=== PATIENT | male | born 1955 | race Caucasian/White ===

== ENCOUNTER 2017-11-04 14:49 | Emergency (ER) | payer MEDICARE ==
[2017-11-04] MEDS ORDERED: Ketorolac Tromethamine 30 MG/ML VIAL ONE (15:31)
[2017-11-04] MEDS ORDERED: Ondansetron HCl/PF 4 MG/2 ML Vial ONE (15:39)
[2017-11-04 15:56] LABS: Bilirubin Negative (Negative); Blood, Urine Moderate (Negative); Clarity CLEAR (Clear); Glucose, Urine (Dipstick) 500 mg/dL (Negative); Leukocyte Negative (Negative); Nitrite Negative (Negative); Protein, Urine (Dipstick) Negative (Neg-Trace); Specific Gravity, Urine 1.017 (1.002-1.036)
[2017-11-04 15:59] LABS: Bacteria/HPF None Seen HPF (None Seen); Hyaline Casts/LPF 0-3 HYALINE CAST LPF (0-3 Hyaline); Pathc Cast-AUWi Flag 0.27 (0-2.49); RBC/HPF 21-50 HPF (0-3); Squamous Epithelial None Seen HPF (0-3); WBC/HPF 0-3 HPF (0-3)
[2017-11-04 16:00] LABS: #Lymphocytes 1.6 thou/uL (1.20-3.40); #Monocytes 1.1 thou/uL (0.11-0.59); #Neutrophils 9.8 thou/uL (1.40-6.50); %Basophils 0.4 % (0.0-1.0); %Eosinophils 0.3 % (0.0-10.0); %Lymphocytes 12.5 % (21.0-51.0); %Monocytes 8.5 % (0.0-10.0); %Neutrophils 78.3 % (42.0-75.0); Hemoglobin 16.4 g/dL (14.0-18.0); Mean Corpuscular HGB CONC 34.9 g/dL (32.0-36.0); Mean Corpuscular Hemoglobin 33.4 pg (27.0-31.0); Mean Corpuscular Volume 95.8 fl (80.0-94.0); Platelet Count 230 thou/uL (130-400); RBC Distribution Width 11.7 % (11.5-14.5); Red Blood Cell (RBC) Count 4.89 mill/uL (4.70-6.10); White Blood Cell (WBC) Count 12.6 thou/uL (4.8-10.8)
[2017-11-04 16:20] LABS: ALT (SGPT) 26 U/L (8-55); AST (SGOT) 18 U/L (5-34); Albumin 4.3 g/dL (3.4-4.8); Alkaline Phosphatase 72 U/L (40-150); Anion Gap 16 mmol/L (10-20); BUN (Urea Nitrogen) 15 mg/dL (8.4-25.7); Bilirubin, Total 0.7 mg/dL (0.2-1.2); Calc. Creatinine Clearance 0 mL/min (70-130); Calcium 9.5 mg/dL (7.8-10.44); Carbon Dioxide 19 mmol/L (23-31); Chloride 104 mmol/L (98-107); Estimated GFR-MDRD 78; Globulin 3.4 g/dL (2.4-3.5); Glucose 184 mg/dL (80-115); Potassium 4.2 mmol/L (3.5-5.1); Protein, Total 7.7 g/dL (5.8-8.1); Sodium 135 mmol/L (136-145)
--- NOTE | 2017-11-04 16:26 | CT ---
EXAM: Abdomen and Pelvic CT without contrast: History: Right flank pain There are small, up to approximately 0.3 cm diameter subpleural and pleural based noncalcified nodule s in the right and left lower lobes. Three vessel coronary artery calcific disease. There is a gallst one within the gallbladder without significant pericholecystic fluid or gallbladder wall thickening. Common bile duct approximates 0.7 cm without intrahepatic ductal dilatation. There are multiple bilat eral renal calculi. There is an obstructing 0.5 x 0.7 cm diameter calculus in the upper right ureter with upper collecting system and renal pelvis dilatation and perirenal and upper periureteral fat str anding consistent with acute obstruction. Multiple left renal calculi are noted but no evidence for l eft obstruction. No CT evidence for acute appendicitis. Lumbar spondylosis. IMPRESSION: Obstructing proximal right ureteral calculus with dilatation of the right upper collecting system and renal pelvis. Multiple nonobstructing bilateral renal calculi. At least one gallstone in the gallbla dder without gallbladder wall thickening or pericholecystic fluid. Other findings as above. POS: [facility]
== END 2017-11-04 17:01 | disposition home or self-care (01) ==
LOC: ERS 14:49
DX: N13.9 Obstructive and reflux uropathy, unspecified (principal); N20.2 Calculus of kidney with calculus of ureter; I10 Essential (primary) hypertension
CPT/HCPCS: 36415; 74176; 80053; 81003; 81015; 83880; 85025; 96361; 96374; 96375; J1885; J2405

== ENCOUNTER 2020-10-02 09:56 | Outpatient (CLI) | payer MEDICARE | END 2020-10-02 09:57 | disposition home or self-care (01) | LOC: BICRAD 09:56 | PROVIDERS: ATTEND Family Medicine | DX: M25.551 Pain in right hip (principal) | CPT/HCPCS: 72170 ==

== ENCOUNTER 2020-10-07 18:23 | Emergency (ER) | payer MEDICARE ==
--- NOTE | 2020-10-07 19:04 | RAD ---
Right Little finger 3 views HISTORY: Fall. Injury. FINDINGS: The middle phalanx is displaced posteriorly by one full shaft width in relation to the prox imal phalanx. Overriding of fragments by approximately 0.2 cm. An irregular 0.2 cm ossification lies immediately distal to the head of the proximal phalanx. IMPRESSION : Posterior dislocation PIP joint right little finger with tiny volar ossific avulsion fragment.
== END 2020-10-07 22:32 | disposition home or self-care (01) ==
LOC: ERS 18:23
DX: S63.256A Unspecified dislocation of right little finger, initial encounter (principal); I10 Essential (primary) hypertension; Z86.73 Personal history of transient ischemic attack (TIA), and cerebral infarction without residual deficits; W07.XXXA Fall from chair, initial encounter
CPT/HCPCS: 26770

== ENCOUNTER 2020-10-22 10:21 | Outpatient (CLI) | payer MEDICARE ==
[2020-10-22 11:17] LABS: Estimated GFR-MDRD - POC Greater than 90
[2020-10-22] MEDS ORDERED: Magnevist 469MG/ML 20 ML VIAL ONE (14:13)
== END 2020-10-22 10:22 | disposition home or self-care (01) ==
LOC: MRI 10:21
PROVIDERS: ATTEND Family Medicine
DX: R29.6 Repeated falls (principal); G93.89 Other specified disorders of brain; R93.0 Abnormal findings on diagnostic imaging of skull and head, not elsewhere classified
CPT/HCPCS: 70553; 72148; 82565; A9579

== ENCOUNTER 2020-12-04 00:17 | Inpatient (IN) | payer MEDICARE ==
[2020-12-04 01:08] LABS: INR-International Normal Ratio 1.1; PTT 32.6 sec (22.9-36.1); Prothrombin Time 14.4 sec (12.0-14.7)
[2020-12-04 01:16] LABS: ALT (SGPT) 63 U/L (8-55); AST (SGOT) 45 U/L (5-34); Albumin 4.7 g/dL (3.4-4.8); Alkaline Phosphatase 62 U/L (40-110); Anion Gap 16 mmol/L (10-20); BUN (Urea Nitrogen) 25 mg/dL (8.4-25.7); Bilirubin, Total 0.9 mg/dL (0.2-1.2); Calc. Creatinine Clearance 0 mL/min (70-130); Calcium 10.6 mg/dL (7.8-10.44); Carbon Dioxide 25 mmol/L (23-31); Chloride 98 mmol/L (98-107); Glucose 138 mg/dL (80-115); Potassium 3.6 mmol/L (3.5-5.1); Protein, Total 8.7 g/dL (5.8-8.1); Sodium 135 mmol/L (136-145)
[2020-12-04 01:21] LABS: Hemoglobin 17.6 g/dL (14.0-18.0); Mean Corpuscular Hemoglobin 33.7 pg (27.0-31.0); Mean Corpuscular Volume 92.3 fL (78.0-98.0)
[2020-12-04 01:36] LABS: #Basophils 0.1 thou/uL (0.0-0.2); #Eosinphils 0.1 thou/uL (0.0-0.7); #Lymphocytes 3.2 thou/uL (1.20-3.40); #Monocytes 1.1 thou/uL (0.11-0.59); #Neutrophils 6.5 thou/uL (1.40-6.50); %Eosinophils 1.3 % (0.0-10.0); %Lymphocytes 28.6 % (21.0-51.0); %Monocytes 10.2 % (0.0-10.0); Mean Corpuscular HGB CONC 36.5 g/dL (32.0-36.0); Mean Platelet Volume 5.2 fL (7.4-10.4); Platelet Count 253 thou/uL (130-400); Platelet Morphology Comment Appears Adequate; RBC Distribution Width 11.8 % (11.5-14.5); RBC Morphology Normal; Red Blood Cell (RBC) Count 5.22 mill/uL (4.70-6.10); White Blood Cell (WBC) Count 11.1 thou/uL (4.8-10.8)
[2020-12-04] MEDS ORDERED: Ondansetron PF 4 MG/2 ML Vial ONE (01:50)
[2020-12-04] MEDS ORDERED: Metoclopramide HCl 10 MG/2 ML VIAL ONE (02:32)
[2020-12-04] MEDS ORDERED: HYDROcodone/Acetaminophen 7.5/325 mg Tablet ONE (02:50)
[2020-12-04] MEDS ORDERED: Ondansetron PF 4 MG/2 ML Vial IVP PRN (09:53)
[2020-12-04] MEDS ORDERED: Acetaminophen 650 MG Suppository PR PRN (09:53)
[2020-12-04] MEDS ORDERED: Acetaminophen 325 MG TAB ONE (12:01)
[2020-12-04] MEDS: Acetaminophen 325 MG TAB PO PRN (12:04)
[2020-12-04] MEDS ORDERED: Iopamidol-370 76% 500 ML 1 ML ONE (12:54)
[2020-12-04] MEDS ORDERED: hydrALAZINE 20 MG/ML VIAL SLOW IVP PRN (14:45)
[2020-12-04 17:07] VITALS: BMI 32.1
[2020-12-04] MEDS: Atorvastatin Calcium 40 MG TAB PO SCH (21:01)
[2020-12-04] MEDS: Enoxaparin Sodium 100 MG/ML SYRINGE SC SCH (21:01)
[2020-12-04] MEDS ORDERED: traMADol HCl 50 MG TAB PO SCH (21:15)
[2020-12-04 21:59] LABS: Hemoglobin 16.1 g/dL (14.0-18.0)
[2020-12-04 22:20] LABS: Lactic Acid 1.1 mmol/L (0.5-2.2)
[2020-12-04 22:26] LABS: ALT (SGPT) 64 U/L (8-55); AST (SGOT) 42 U/L (5-34); Albumin 4.1 g/dL (3.4-4.8); Alkaline Phosphatase 53 U/L (40-110); Anion Gap 15 mmol/L (10-20); BUN (Urea Nitrogen) 17 mg/dL (8.4-25.7); Bilirubin, Direct 0.3 mg/dL (0.1-0.3); Bilirubin, Total 0.7 mg/dL (0.2-1.2); CRP (Inflammatory) Less than 0.50 mg/dL (= or < 0.5); Calc. Creatinine Clearance 117 mL/min (70-130); Calcium 9.5 mg/dL (7.8-10.44); Carbon Dioxide 20 mmol/L (23-31); Chloride 101 mmol/L (98-107); Globulin 3.5 g/dL (2.4-3.5); Glucose 129 mg/dL (80-115); Magnesium 2.1 mg/dL (1.6-2.6); Potassium 3.3 mmol/L (3.5-5.1); Protein, Total 7.6 g/dL (5.8-8.1); Sodium 133 mmol/L (136-145)
[2020-12-05 05:29] LABS: Hemoglobin A1c 5.4 % (4.0-6.0)
[2020-12-05 05:32] LABS: #Basophils 0.1 thou/uL (0.0-0.2); #Eosinphils 0.1 thou/uL (0.0-0.7); #Lymphocytes 2.5 thou/uL (1.20-3.40); #Neutrophils 6.4 thou/uL (1.40-6.50); %Basophils 0.5 % (0.0-1.0); %Eosinophils 0.7 % (0.0-10.0); %Lymphocytes 24.8 % (21.0-51.0); %Monocytes 9.9 % (0.0-10.0); Hemoglobin 16.5 g/dL (14.0-18.0); Mean Corpuscular HGB CONC 36.4 g/dL (32.0-36.0); Mean Corpuscular Hemoglobin 33.5 pg (27.0-31.0); Mean Platelet Volume 7.1 fL (7.4-10.4); Platelet Count 254 thou/uL (130-400); RBC Distribution Width 11.6 % (11.5-14.5); Red Blood Cell (RBC) Count 4.91 mill/uL (4.70-6.10)
[2020-12-05 05:51] LABS: ALT (SGPT) 65 U/L (8-55); AST (SGOT) 37 U/L (5-34); Albumin 4.1 g/dL (3.4-4.8); Alkaline Phosphatase 53 U/L (40-110); Anion Gap 18 mmol/L (10-20); BUN (Urea Nitrogen) 16 mg/dL (8.4-25.7); Calc. Creatinine Clearance 118 mL/min (70-130); Calcium 9.6 mg/dL (7.8-10.44); Carbon Dioxide 20 mmol/L (23-31); Cardiac Risk 4.7 (Less than 4.5); Chloride 100 mmol/L (98-107); Cholesterol 135 mg/dl (< 200 Desired); Globulin 3.4 g/dL (2.4-3.5); Glucose 140 mg/dL (80-115); HDL Cholesterol 29 mg/dL (>60 Neg Risk); LDL Cholesterol, Calculated 76 mg/dL; Potassium 3.1 mmol/L (3.5-5.1); Protein, Total 7.5 g/dL (5.8-8.1); Sodium 135 mmol/L (136-145); Triglycerides 148 mg/dL (Less than 150)
[2020-12-05] MEDS ORDERED: Potassium Chloride 20 MEQ TAB PO SCH (08:00)
[2020-12-05] MEDS ORDERED: Enoxaparin Sodium 40 MG/0.4 ML SYRINGE SC SCH (09:00)
[2020-12-05] MEDS ORDERED: Aspirin 81 mg Enteric Coated Tablet PO SCH (09:00)
[2020-12-05] MEDS: Enoxaparin Sodium 100 MG/ML SYRINGE SC SCH ×2 (09:49→20:50)
[2020-12-05] MEDS: Aspirin 81 mg Enteric Coated Tablet PO SCH (09:49)
[2020-12-05] MEDS: Clopidogrel Bisulfate 75 MG TAB PO SCH (09:49)
[2020-12-05] MEDS: Lidocaine 5% Patch TD SCH (09:50)
[2020-12-05] MEDS: HYDROcodone/Acetaminophen 7.5/325 mg Tablet PO PRN ×2 (13:09→18:36)
[2020-12-05 14:29] LABS: Potassium 3.6 mmol/L (3.5-5.1)
[2020-12-05] MEDS: Metoprolol Tartrate 50 MG TAB PO SCH (20:51)
[2020-12-05] MEDS: Atorvastatin Calcium 40 MG TAB PO SCH (20:51)
[2020-12-05] MEDS: LIDOCAINE Patch Removal TOP SCH (20:51)
[2020-12-05] MEDS ORDERED: Metoprolol Tartrate 25 MG TAB PO SCH (21:00)
[2020-12-05] MEDS ORDERED: Lidocaine 5% Patch TD ONE (21:03)
[2020-12-06] MEDS: HYDROcodone/Acetaminophen 7.5/325 mg Tablet PO PRN ×5 (00:51→23:22)
[2020-12-06 04:50] LABS: #Eosinphils 0.1 thou/uL (0.0-0.7); #Lymphocytes 2.8 thou/uL (1.20-3.40); #Neutrophils 5.3 thou/uL (1.40-6.50); %Basophils 0.5 % (0.0-1.0); %Eosinophils 1.3 % (0.0-10.0); %Lymphocytes 29.7 % (21.0-51.0); %Monocytes 10.8 % (0.0-10.0); %Neutrophils 57.6 % (42.0-75.0); Hemoglobin 15.9 g/dL (14.0-18.0); Mean Corpuscular HGB CONC 35.7 g/dL (32.0-36.0); Mean Corpuscular Hemoglobin 32.9 pg (27.0-31.0); Mean Corpuscular Volume 92.3 fL (78.0-98.0); Platelet Count 241 thou/uL (130-400); RBC Distribution Width 11.7 % (11.5-14.5); Red Blood Cell (RBC) Count 4.84 mill/uL (4.70-6.10); White Blood Cell (WBC) Count 9.3 thou/uL (4.8-10.8)
[2020-12-06 05:16] LABS: ALT (SGPT) 57 U/L (8-55); AST (SGOT) 29 U/L (5-34); Alkaline Phosphatase 53 U/L (40-110); Anion Gap 15 mmol/L (10-20); BUN (Urea Nitrogen) 14 mg/dL (8.4-25.7); Bilirubin, Total 0.9 mg/dL (0.2-1.2); Calc. Creatinine Clearance 119 mL/min (70-130); Calcium 9.7 mg/dL (7.8-10.44); Carbon Dioxide 21 mmol/L (23-31); Chloride 104 mmol/L (98-107); Globulin 3.4 g/dL (2.4-3.5); Glucose 137 mg/dL (80-115); Potassium 3.6 mmol/L (3.5-5.1); Protein, Total 7.4 g/dL (5.8-8.1); Sodium 136 mmol/L (136-145)
[2020-12-06] MEDS ORDERED: Potassium Chloride 20 MEQ TAB PO SCH (07:45)
[2020-12-06] MEDS ORDERED: Potassium Bicarbonate/Cit Ac 20 MEQ TAB PO SCH (10:15)
[2020-12-06] MEDS: Enoxaparin Sodium 100 MG/ML SYRINGE SC SCH ×2 (10:48→21:50)
[2020-12-06] MEDS: Metoprolol Tartrate 50 MG TAB PO SCH ×2 (10:48→21:50)
[2020-12-06] MEDS: Lidocaine 5% Patch TD SCH (10:49)
[2020-12-06] MEDS: Aspirin 81 mg Enteric Coated Tablet PO SCH (10:57)
[2020-12-06] MEDS: Clopidogrel Bisulfate 75 MG TAB PO SCH (10:57)
[2020-12-06] MEDS ORDERED: hydrALAZINE 20 MG/ML VIAL SLOW IVP PRN (16:41)
[2020-12-06] MEDS: Atorvastatin Calcium 40 MG TAB PO SCH (21:50)
[2020-12-06] MEDS: LIDOCAINE Patch Removal TOP SCH (21:51)
[2020-12-06] MEDS: Senokot S 8.6-50 MG TAB PO PRN (23:25)
[2020-12-07] MEDS: HYDROcodone/Acetaminophen 7.5/325 mg Tablet PO PRN ×3 (05:17→17:25)
[2020-12-07 05:43] LABS: #Eosinphils 0.2 thou/uL (0.0-0.7); #Lymphocytes 2.3 thou/uL (1.20-3.40); #Monocytes 0.9 thou/uL (0.11-0.59); #Neutrophils 5.3 thou/uL (1.40-6.50); %Basophils 0.3 % (0.0-1.0); %Eosinophils 1.9 % (0.0-10.0); %Lymphocytes 26.6 % (21.0-51.0); %Monocytes 10.2 % (0.0-10.0); Hemoglobin 14.8 g/dL (14.0-18.0); Mean Corpuscular HGB CONC 34.4 g/dL (32.0-36.0); Mean Corpuscular Hemoglobin 31.7 pg (27.0-31.0); Mean Corpuscular Volume 92.1 fL (78.0-98.0); Mean Platelet Volume 6.9 fL (7.4-10.4); Platelet Count 243 thou/uL (130-400); RBC Distribution Width 11.8 % (11.5-14.5); Red Blood Cell (RBC) Count 4.66 mill/uL (4.70-6.10); White Blood Cell (WBC) Count 8.6 thou/uL (4.8-10.8)
[2020-12-07 06:01] LABS: Anion Gap 14 mmol/L (10-20); BUN (Urea Nitrogen) 12 mg/dL (8.4-25.7); Calc. Creatinine Clearance 131 mL/min (70-130); Calcium 9.2 mg/dL (7.8-10.44); Carbon Dioxide 21 mmol/L (23-31); Chloride 102 mmol/L (98-107); Glucose 121 mg/dL (80-115); Magnesium 2.1 mg/dL (1.6-2.6); Potassium 3.6 mmol/L (3.5-5.1); Sodium 133 mmol/L (136-145)
[2020-12-07] MEDS ORDERED: Lisinopril 10 MG TAB PO SCH (09:00)
[2020-12-07] MEDS: Clopidogrel Bisulfate 75 MG TAB PO SCH (10:23)
[2020-12-07] MEDS: Metoprolol Tartrate 50 MG TAB PO SCH ×2 (10:24→20:03)
[2020-12-07] MEDS: Enoxaparin Sodium 100 MG/ML SYRINGE SC SCH ×2 (10:25→20:02)
[2020-12-07] MEDS: Lidocaine 5% Patch TD SCH (10:25)
[2020-12-07] MEDS: Senokot S 8.6-50 MG TAB PO PRN (10:36)
[2020-12-07] MEDS: Aspirin 81 mg Enteric Coated Tablet PO SCH (11:48)
[2020-12-07] MEDS ORDERED: Sodium Chloride 0.9% 1,000 ML IV SCH (14:00)
[2020-12-07] MEDS: Atorvastatin Calcium 40 MG TAB PO SCH (20:02)
[2020-12-07] MEDS: LIDOCAINE Patch Removal TOP SCH (20:03)
[2020-12-07] MEDS ORDERED: Amlodipine 5 MG TAB PO SCH (21:00)
[2020-12-08] MEDS: HYDROcodone/Acetaminophen 7.5/325 mg Tablet PO PRN ×4 (00:53→19:47)
[2020-12-08 06:09] LABS: #Eosinphils 0.2 thou/uL (0.0-0.7); #Lymphocytes 2.2 thou/uL (1.20-3.40); #Monocytes 0.8 thou/uL (0.11-0.59); #Neutrophils 4.3 thou/uL (1.40-6.50); %Basophils 0.6 % (0.0-1.0); %Eosinophils 2.4 % (0.0-10.0); %Lymphocytes 29.7 % (21.0-51.0); %Monocytes 10.1 % (0.0-10.0); %Neutrophils 57.3 % (42.0-75.0); Hemoglobin 14.8 g/dL (14.0-18.0); Mean Corpuscular Hemoglobin 32.1 pg (27.0-31.0); Mean Corpuscular Volume 91.9 fL (78.0-98.0); Mean Platelet Volume 6.9 fL (7.4-10.4); Platelet Count 243 thou/uL (130-400); RBC Distribution Width 11.8 % (11.5-14.5); Red Blood Cell (RBC) Count 4.62 mill/uL (4.70-6.10); White Blood Cell (WBC) Count 7.5 thou/uL (4.8-10.8)
[2020-12-08 06:29] LABS: ALT (SGPT) 62 U/L (8-55); AST (SGOT) 35 U/L (5-34); Albumin 3.7 g/dL (3.4-4.8); Alkaline Phosphatase 51 U/L (40-110); Anion Gap 13 mmol/L (10-20); BUN (Urea Nitrogen) 12 mg/dL (8.4-25.7); Bilirubin, Total 0.7 mg/dL (0.2-1.2); Calc. Creatinine Clearance 131 mL/min (70-130); Calcium 8.9 mg/dL (7.8-10.44); Carbon Dioxide 21 mmol/L (23-31); Chloride 105 mmol/L (98-107); Globulin 3.1 g/dL (2.4-3.5); Glucose 112 mg/dL (80-115); Potassium 3.6 mmol/L (3.5-5.1); Protein, Total 6.8 g/dL (5.8-8.1); Sodium 135 mmol/L (136-145)
[2020-12-08] MEDS: Clopidogrel Bisulfate 75 MG TAB PO SCH (08:38)
[2020-12-08] MEDS: Lisinopril 20 MG TAB PO SCH (08:38)
[2020-12-08] MEDS: Aspirin 81 mg Enteric Coated Tablet PO SCH (08:38)
[2020-12-08] MEDS: Metoprolol Tartrate 50 MG TAB PO SCH ×2 (08:38→21:22)
[2020-12-08] MEDS: Senokot S 8.6-50 MG TAB PO PRN (08:38)
[2020-12-08] MEDS: Lidocaine 5% Patch TD SCH (08:39)
[2020-12-08] MEDS: Enoxaparin Sodium 100 MG/ML SYRINGE SC SCH ×2 (08:39→21:22)
[2020-12-08] MEDS: Acetaminophen 325 MG TAB PO PRN ×2 (13:03→21:22)
[2020-12-08] MEDS: Amlodipine 10 MG TAB PO SCH (21:21)
[2020-12-08] MEDS: LIDOCAINE Patch Removal TOP SCH (21:22)
[2020-12-08] MEDS: Atorvastatin Calcium 40 MG TAB PO SCH (21:22)
[2020-12-09] MEDS: HYDROcodone/Acetaminophen 7.5/325 mg Tablet PO PRN ×4 (02:07→21:09)
[2020-12-09 06:21] LABS: #Eosinphils 0.2 thou/uL (0.0-0.7); #Lymphocytes 2.5 thou/uL (1.20-3.40); #Neutrophils 4.6 thou/uL (1.40-6.50); %Basophils 0.3 % (0.0-1.0); %Eosinophils 2.2 % (0.0-10.0); %Lymphocytes 30.4 % (21.0-51.0); %Monocytes 11.5 % (0.0-10.0); %Neutrophils 55.6 % (42.0-75.0); Hemoglobin 15.3 g/dL (14.0-18.0); Mean Corpuscular HGB CONC 34.2 g/dL (32.0-36.0); Mean Corpuscular Hemoglobin 31.4 pg (27.0-31.0); Mean Corpuscular Volume 91.8 fL (78.0-98.0); Mean Platelet Volume 6.7 fL (7.4-10.4); Platelet Count 276 thou/uL (130-400); RBC Distribution Width 11.8 % (11.5-14.5); Red Blood Cell (RBC) Count 4.88 mill/uL (4.70-6.10); White Blood Cell (WBC) Count 8.3 thou/uL (4.8-10.8)
[2020-12-09 06:44] LABS: Anion Gap 15 mmol/L (10-20); BUN (Urea Nitrogen) 13 mg/dL (8.4-25.7); Calc. Creatinine Clearance 133 mL/min (70-130); Calcium 9.6 mg/dL (7.8-10.44); Carbon Dioxide 19 mmol/L (23-31); Chloride 106 mmol/L (98-107); Glucose 120 mg/dL (80-115); Potassium 3.6 mmol/L (3.5-5.1); Sodium 136 mmol/L (136-145)
[2020-12-09] MEDS: Enoxaparin Sodium 100 MG/ML SYRINGE SC SCH ×2 (08:20→21:10)
[2020-12-09] MEDS: Clopidogrel Bisulfate 75 MG TAB PO SCH (08:21)
[2020-12-09] MEDS: Aspirin 81 mg Enteric Coated Tablet PO SCH (08:22)
[2020-12-09] MEDS: Lisinopril 20 MG TAB PO SCH (08:23)
[2020-12-09] MEDS: Metoprolol Tartrate 50 MG TAB PO SCH (08:23)
[2020-12-09] MEDS: Lidocaine 5% Patch TD SCH (08:23)
[2020-12-09] MEDS: Atorvastatin Calcium 40 MG TAB PO SCH (21:08)
[2020-12-09] MEDS: Amlodipine 10 MG TAB PO SCH (21:10)
[2020-12-09] MEDS: Metoprolol Tartrate 100 MG TAB PO SCH (21:10)
[2020-12-09] MEDS: LIDOCAINE Patch Removal TOP SCH (21:12)
[2020-12-10] MEDS: Acetaminophen 325 MG TAB PO PRN ×2 (00:11→20:59)
[2020-12-10] MEDS: HYDROcodone/Acetaminophen 7.5/325 mg Tablet PO PRN ×4 (04:24→23:53)
[2020-12-10 06:16] LABS: #Eosinphils 0.2 thou/uL (0.0-0.7); #Lymphocytes 1.8 thou/uL (1.20-3.40); #Monocytes 0.8 thou/uL (0.11-0.59); #Neutrophils 4.4 thou/uL (1.40-6.50); %Basophils 0.5 % (0.0-1.0); %Eosinophils 2.2 % (0.0-10.0); %Lymphocytes 24.8 % (21.0-51.0); %Monocytes 10.7 % (0.0-10.0); %Neutrophils 61.7 % (42.0-75.0); Hemoglobin 15.9 g/dL (14.0-18.0); Mean Corpuscular HGB CONC 35.8 g/dL (32.0-36.0); Mean Corpuscular Hemoglobin 32.8 pg (27.0-31.0); Mean Corpuscular Volume 91.9 fL (78.0-98.0); Mean Platelet Volume 6.4 fL (7.4-10.4); Platelet Count 249 thou/uL (130-400); RBC Distribution Width 11.7 % (11.5-14.5); Red Blood Cell (RBC) Count 4.83 mill/uL (4.70-6.10); White Blood Cell (WBC) Count 7.1 thou/uL (4.8-10.8)
[2020-12-10 06:20] LABS: Anion Gap 14 mmol/L (10-20); BUN (Urea Nitrogen) 13 mg/dL (8.4-25.7); Calc. Creatinine Clearance 131 mL/min (70-130); Calcium 9.6 mg/dL (7.8-10.44); Carbon Dioxide 20 mmol/L (23-31); Chloride 106 mmol/L (98-107); Glucose 130 mg/dL (80-115); Potassium 3.5 mmol/L (3.5-5.1); Sodium 136 mmol/L (136-145)
[2020-12-10] MEDS: Lisinopril 20 MG TAB PO SCH (08:52)
[2020-12-10] MEDS: Enoxaparin Sodium 100 MG/ML SYRINGE SC SCH (08:52)
[2020-12-10] MEDS: Metoprolol Tartrate 100 MG TAB PO SCH ×2 (08:52→20:52)
[2020-12-10] MEDS: Aspirin 81 mg Enteric Coated Tablet PO SCH (08:52)
[2020-12-10] MEDS: Clopidogrel Bisulfate 75 MG TAB PO SCH (08:52)
[2020-12-10] MEDS: Lidocaine 5% Patch TD SCH (08:52)
[2020-12-10] MEDS: Atorvastatin Calcium 40 MG TAB PO SCH (20:51)
[2020-12-10] MEDS: Amlodipine 10 MG TAB PO SCH (20:51)
[2020-12-10] MEDS: Apixaban 5 MG TAB PO SCH (20:51)
[2020-12-10] MEDS: LIDOCAINE Patch Removal TOP SCH (21:00)
[2020-12-11 08:36] LABS: #Eosinphils 0.1 thou/uL (0.0-0.7); #Lymphocytes 1.7 thou/uL (1.20-3.40); #Monocytes 0.8 thou/uL (0.11-0.59); %Basophils 0.3 % (0.0-1.0); %Lymphocytes 26.2 % (21.0-51.0); %Monocytes 11.3 % (0.0-10.0); %Neutrophils 60.2 % (42.0-75.0); Hemoglobin 15.3 g/dL (14.0-18.0); Mean Corpuscular HGB CONC 35.9 g/dL (32.0-36.0); Mean Corpuscular Hemoglobin 32.9 pg (27.0-31.0); Mean Corpuscular Volume 91.6 fL (78.0-98.0); Mean Platelet Volume 6.6 fL (7.4-10.4); Platelet Count 267 thou/uL (130-400); RBC Distribution Width 11.6 % (11.5-14.5); Red Blood Cell (RBC) Count 4.66 mill/uL (4.70-6.10); White Blood Cell (WBC) Count 6.6 thou/uL (4.8-10.8)
[2020-12-11 08:43] LABS: Bilirubin Negative (Negative); Blood, Urine 3+ (Negative); Clarity Turbid (Clear); Glucose, Urine (Dipstick) Normal (Negative); Ketone, Urine Negative (Negative); Leukocyte Negative Leu/uL (Negative); Nitrite Negative (Negative); Protein, Urine (Dipstick) 30 mg/dL (Neg-Trace); RBC/HPF Greater than 50 HPF (0-3); Specific Gravity, Urine 1.009 (1.002-1.036); Squamous Epithelial None Seen HPF (0-3); Urobilinogen Normal mg/dL (Less than 2); pH, Urine 6.5 (5.0-9.0)
[2020-12-11 08:44] LABS: Bacteria/HPF 1+ HPF (None Seen); Urine Culture Reflex Yes Yes
[2020-12-11] MEDS: Lidocaine 5% Patch TD SCH (08:52)
[2020-12-11] MEDS: Apixaban 5 MG TAB PO SCH (08:53)
[2020-12-11] MEDS: Metoprolol Tartrate 100 MG TAB PO SCH (08:53)
[2020-12-11] MEDS: Clopidogrel Bisulfate 75 MG TAB PO SCH (08:53)
[2020-12-11] MEDS: HYDROcodone/Acetaminophen 7.5/325 mg Tablet PO PRN ×2 (08:53→17:58)
[2020-12-11] MEDS: Lisinopril 20 MG TAB PO SCH (08:53)
[2020-12-11] MEDS: Senokot S 8.6-50 MG TAB PO PRN (08:54)
[2020-12-11 08:55] LABS: Anion Gap 13 mmol/L (10-20); BUN (Urea Nitrogen) 11 mg/dL (8.4-25.7); Calc. Creatinine Clearance 133 mL/min (70-130); Carbon Dioxide 21 mmol/L (23-31); Chloride 105 mmol/L (98-107); Glucose 143 mg/dL (80-115); Potassium 3.5 mmol/L (3.5-5.1); Sodium 135 mmol/L (136-145)
[2020-12-11] MEDS ORDERED: Apixaban 5 MG TAB PO SCH (09:00)
[2020-12-11 15:27] VITALS: BP 132/74; TEMP 98.1
== END 2020-12-11 19:42 | DRG 65 ==
LOC: ERS 00:17 → ERHOLD 04:46 → 2SE 16:04 → OBSVTOIN 12-05 11:23
PROVIDERS: ADMIT Student in an Organized Health Care Education/Training Program; ATTEND Internal Medicine
DX: I63.9 Cerebral infarction, unspecified (principal); G81.91 Hemiplegia, unspecified affecting right dominant side; N39.0 Urinary tract infection, site not specified; I77.2 Rupture of artery; I10 Essential (primary) hypertension; G89.29 Other chronic pain; E78.5 Hyperlipidemia, unspecified; M54.9 Dorsalgia, unspecified; R47.01 Aphasia; I48.91 Unspecified atrial fibrillation; F12.90 Cannabis use, unspecified, uncomplicated; I65.22 Occlusion and stenosis of left carotid artery
CPT/HCPCS: 36415; 36416; 70450; 70496; 70498; 70551; 71045; 80048; 80053; 80061; 81001; 82248; 83036; 83605; 83735; 84484; 85025; 85610; 85730; 86140; 87086; 93005; 95712; 95819; 95957; 96372; 96374; 96375; G0378; J0360; J1650; J2405; J2765; Q9967

== ENCOUNTER 2021-11-23 04:32 | Emergency (ER) | payer MEDICARE ==
[2021-11-23] MEDS ORDERED: Bacitracin 1 PK ONE (05:19)
== END 2021-11-23 05:58 | disposition home or self-care (01) ==
LOC: ERS 04:32
DX: S80.01XA Contusion of right knee, initial encounter (principal); S40.012A Contusion of left shoulder, initial encounter; S70.12XA Contusion of left thigh, initial encounter; I10 Essential (primary) hypertension; Z86.73 Personal history of transient ischemic attack (TIA), and cerebral infarction without residual deficits; W18.2XXA Fall in (into) shower or empty bathtub, initial encounter

== ENCOUNTER 2022-02-05 14:08 | Outpatient (CLI) | payer MEDICARE ==
[2022-02-05 16:56] LABS: #Eosinphils 0.6 10x3/uL (0.0-0.5); #Monocytes 0.6 10x3/uL (0.0-1.1); #Neutrophils 3.9 10x3/uL (1.5-8.4); %Basophils 0.6 % (0.0-2.0); %Eosinophils 8.5 % (0.0-6.0); %Lymphocytes 27.8 % (18.0-47.0); %Monocytes 8.9 % (0.0-10.0); %Neutrophils 53.8 % (40.0-75.0); Hemoglobin 15.1 g/dL (13.5-17.5); Mean Corpuscular Hemoglobin 31.9 pg (27.0-33.0); Mean Corpuscular Volume 88.8 fl (81.2-95.1); Mean Platelet Volume 9.6 fl (7.4-10.4); Platelet Count 243 10x3/uL (150-450); RBC Distribution Width 12.5 % (11.5-14.5); Red Blood Cell (RBC) Count 4.73 10x6/uL (4.32-5.72); White Blood Cell (WBC) Count 7.2 10x3/uL (3.5-10.5)
[2022-02-05 17:15] LABS: Anion Gap 17 mmol/L (10-20); BUN (Urea Nitrogen) 17 mg/dL (8.4-25.7); Calc. Creatinine Clearance 0 mL/min (70-130); Calcium 9.8 mg/dL (7.8-10.44); Carbon Dioxide 26 mmol/L (23-31); Chloride 101 mmol/L (98-107); Glucose 304 mg/dL (80-115); Potassium 5.3 mmol/L (3.5-5.1); Sodium 139 mmol/L (136-145)
== END 2022-02-05 14:09 | disposition home or self-care (01) ==
LOC: LABBT 14:08
PROVIDERS: ATTEND Thoracic Surgery (Cardiothoracic Vascular Surgery)
DX: Z01.812 Encounter for preprocedural laboratory examination (principal); Z20.822 Contact with and (suspected) exposure to COVID-19
CPT/HCPCS: 80048; 85025; U0003; U0005

== ENCOUNTER 2022-02-05 14:30 | Inpatient (IN) | payer MEDICARE ==
[2022-02-10] MEDS ORDERED: Heparin 5,000 UNITS/ML VIAL ONE (06:37)
[2022-02-10] MEDS ORDERED: Dexamethasone 4 mg/ml Vial ONE (06:37)
[2022-02-10] MEDS ORDERED: Bupivacaine PF 0.5% 30 ML VIAL ONE (06:37)
[2022-02-10] MEDS ORDERED: Protamine Sulfate 50 MG/5 ML VIAL ONE (06:37)
[2022-02-10] MEDS ORDERED: EPINEPHrine 1 MG/ML AMP ONE (06:37)
[2022-02-10] MEDS ORDERED: fentaNYL Citrate/PF 100 MCG/2 ML SYRINGE ONE (06:42)
[2022-02-10] MEDS ORDERED: Midazolam HCl 2 mg/2 ml Vial ONE (06:59)
[2022-02-10] MEDS ORDERED: Lidocaine 2% PF 5 ML VIAL ONE (06:59)
[2022-02-10] MEDS ORDERED: Sodium Chloride 0.9% 100 ML ONE (07:22)
[2022-02-10] MEDS ORDERED: CEFAZOLIN 2 GM VIAL ONE (07:22)
[2022-02-10] MEDS ORDERED: Fentanyl 100 MCG/2 ML VIAL ONE (09:09)
[2022-02-10] MEDS ORDERED: Phenylephrine 1% Nasal Spray 15 ML BOT EA NARE PRN ×2 (10:54→12:39)
[2022-02-10] MEDS ORDERED: Nitroglycerin 50 MG/250 ML BOT 250 ML IVPB PRN (10:54)
[2022-02-10] MEDS ORDERED: Promethazine HCl 25 MG/ML VIAL IM PRN (10:54)
[2022-02-10] MEDS ORDERED: Fentanyl 100 MCG/2 ML VIAL SLOW IVP PRN (10:54)
[2022-02-10] MEDS ORDERED: Ondansetron PF 4 MG/2 ML Vial IVP PRN (10:54)
[2022-02-10] MEDS ORDERED: Ibuprofen 200 MG TAB PO PRN (10:54)
[2022-02-10] MEDS ORDERED: hydrALAZINE 20 MG/ML VIAL SLOW IVP PRN (10:54)
[2022-02-10] MEDS ORDERED: Acetaminophen 325 MG TAB PO PRN (10:54)
[2022-02-10] MEDS ORDERED: ceFAZolin 2 GM/Dextrose 50 ML 2 GM in Premix Bag 1 BAG IVPB SCH (10:54)
[2022-02-10] MEDS ORDERED: Cholecalciferol 1,000 UNITS (25 MCG) TAB PO SCH (10:54)
[2022-02-10] MEDS ORDERED: Phenylephrine 40 MG in Sodium Chloride 0.9% 250 ML 250 ML IVPB PRN (10:54)
[2022-02-10] MEDS ORDERED: Non-Formulary Item 1 EACH (Multivit-Min/Folic/Vit K/Lycop [Men's 50 Plus Multivitamin Tab PO SCH (10:54)
[2022-02-10] MEDS: Sodium Chloride 0.9% 1,000 ML IV SCH ×3 (13:06→23:30)
[2022-02-10] MEDS: Gabapentin 300 MG CAP PO SCH ×2 (13:39→20:53)
[2022-02-10] MEDS: CEFAZOLIN 2 GM in Sodium Chloride 0.9% 100 ML IVPB SCH ×2 (13:40→20:55)
[2022-02-10] MEDS: Ibuprofen 800 MG TAB PO PRN (13:52)
[2022-02-10 14:51] VITALS: BMI 34.2
[2022-02-10] MEDS ORDERED: HYDROcodone/Acetaminophen 7.5/325 mg Tablet PO SCH (21:00)
[2022-02-10] MEDS ORDERED: Cyclobenzaprine 10 MG TAB PO SCH (21:00)
[2022-02-10] MEDS ORDERED: LIDOCAINE TP SCH (21:00)
[2022-02-10] MEDS ORDERED: Atorvastatin Calcium 40 MG TAB PO SCH (21:00)
[2022-02-10] MEDS ORDERED: Lidocaine 5% Patch TD SCH (21:00)
[2022-02-11] MEDS: Ibuprofen 800 MG TAB PO PRN ×2 (03:44→07:35)
[2022-02-11] MEDS: CEFAZOLIN 2 GM in Sodium Chloride 0.9% 100 ML IVPB SCH (06:15)
[2022-02-11] MEDS: Gabapentin 300 MG CAP PO SCH (07:30)
[2022-02-11 08:07] VITALS: TEMP 98
[2022-02-11] MEDS ORDERED: Clopidogrel Bisulfate 75 MG TAB PO SCH (09:00)
[2022-02-11] MEDS ORDERED: Transdermal Patch Removal TOP SCH (09:00)
[2022-02-11] MEDS ORDERED: Cholecalciferol 1,000 UNITS (25 MCG) TAB PO SCH (09:00)
[2022-02-11] MEDS ORDERED: Lisinopril 20 MG TAB PO SCH (09:00)
[2022-02-11] MEDS ORDERED: Non-Formulary Item 1 EACH (Lisinopril [Lisinopril] 40 MG Tablet) PO SCH (09:00)
[2022-02-11] MEDS ORDERED: Apixaban 5 MG TAB PO SCH (09:00)
[2022-02-11] MEDS ORDERED: Multivitamin W/ Minerals 1 TAB PO SCH (09:00)
[2022-02-11] MEDS ORDERED: Amlodipine 10 MG TAB PO SCH (21:00)
== END 2022-02-11 11:13 | disposition home or self-care (01) | DRG 38 ==
LOC: SURG A 02-10 06:06 → CCU 02-10 11:20
PROVIDERS: ADMIT Thoracic Surgery (Cardiothoracic Vascular Surgery); ATTEND Thoracic Surgery (Cardiothoracic Vascular Surgery)
PROC: 03CJ0ZZ Extirpation of Matter from Left Common Carotid Artery, Open Approach (ICD-10-PCS; principal; 2022-02-10)
PROC: 07B20ZX Excision of Left Neck Lymphatic, Open Approach, Diagnostic (ICD-10-PCS; 2022-02-10)
DX: I65.22 Occlusion and stenosis of left carotid artery (principal); I69.351 Hemiplegia and hemiparesis following cerebral infarction affecting right dominant side; Z20.822 Contact with and (suspected) exposure to COVID-19; Z79.899 Other long term (current) drug therapy; Z79.02 Long term (current) use of antithrombotics/antiplatelets; I48.0 Paroxysmal atrial fibrillation; E78.5 Hyperlipidemia, unspecified; I10 Essential (primary) hypertension; E11.9 Type 2 diabetes mellitus without complications; Z87.442 Personal history of urinary calculi; I69.320 Aphasia following cerebral infarction
CPT/HCPCS: 88184; 88185; 88305; 94640; J0171; J0690; J1100; J1642; J1644; J2001; J2250; J2720; J3010; J3490; J7050; J7620; S0020